=== PATIENT | female | born 1945 | race Two or more races ===

== ENCOUNTER → 2023-08-04 | Outpatient (CLI) | payer OTHER ==
[2023-08-04 13:20] LABS: Basophils # (auto) 0.1 10 ^3/uL (0-0.2); Basophils % (auto) 1.1 % (0.0-2.0); Eosinophils # (auto) 0.1 10 ^3/uL (0-0.8); Eosinophils % (auto) 2.7 % (0.0-7.0); Hemoglobin 13.2 g/dL (12.2-16.2); Lymphocytes # (auto) 2.6 10 ^3/uL (0.4-5.4); Lymphocytes % (auto) 57.4 % (10.0-50.0); Mean Corpuscular Hemoglobin 28.7 pg (28.0-32.0); Mean Corpuscular Volume 87.1 fL (80.0-100.0); Monocytes # (auto) 0.4 10 ^3/uL (0-1.3); Monocytes % (auto) 7.7 % (0.0-12.0); Neutrophils # (auto) 1.4 10 ^3/uL (1.6-8.6); Neutrophils % (auto) 31.1 % (37.0-80.0); Nucleated Red Blood Cells % 0.1 %; Red Cell Distribution Width 14.2 % (11.8-14.3); White Blood Cell 4.6 10^3/uL (4.4-10.8)
[2023-08-04 13:34] LABS: Urine Bacteria FEW /hpf (None Seen); Urine Blood Negative /uL (Negative); Urine Clarity Clear (Clear); Urine Color Yellow (Yellow); Urine Hyaline Cast FEW /lpf (0 - 2); Urine Protein, UAD TRACE (Negative); Urine Specific Gravity 1.026 (1.001-1.035); Urine Urobilinogen Normal (Negative); Urine WBC 9 /hpf (0 - 5)
[2023-08-04 13:41] LABS: Alanine Aminotransferase 18 U/L (7-40); Albumin 4.4 g/dL (3.2-4.8); Alkaline Phosphatase 102 U/L (46-116); Anion Gap 7 (5-15); Aspartate Aminotransferase 17 U/L (13-40); BUN/Creatinine Ratio 17.6 (10.0-20.0); Blood Urea Nitrogen 13 mg/dL (9-23); Calcium 9.8 mg/dL (8.5-10.1); Carbon Dioxide 29 mmol/L (20-30); Chloride 107 mmol/L (98-107); Glucose 139 mg/dL (74-106); LDL Cholesterol 137 mg/dL (< 100); Potassium 4.4 mmol/L (3.5-5.1); Sodium 143 mmol/L (136-145); Triglycerides 210 mg/dL (< 150)
[2023-08-04 13:42] LABS: Bilirubin, Total 0.5 mg/dL (0.2-1.0); Cholesterol 239 mg/dL (< 200); HDL Cholesterol 46 mg/dL (40-59); Total Protein 6.7 g/dL (5.7-8.2)
[2023-08-04 13:43] LABS: Folate (Folic Acid) 19.3 ng/mL (>5.38)
[2023-08-04 14:08] LABS: Uric Acid 6.7 mg/dL (3.1-7.8)
== END | disposition home or self-care (01) ==
LOC: LAB 12:47
PROVIDERS: ATTEND Internal Medicine
DX: E61.2 Magnesium deficiency (principal); R78.89 Finding of other specified substances, not normally found in blood; E78.41 Elevated Lipoprotein(a); R94.6 Abnormal results of thyroid function studies; E79.0 Hyperuricemia without signs of inflammatory arthritis and tophaceous disease; E85.9 Amyloidosis, unspecified; R82.991 Hypocitraturia; R82.90 Unspecified abnormal findings in urine; R82.79 Other abnormal findings on microbiological examination of urine; D51.9 Vitamin B12 deficiency anemia, unspecified
CPT/HCPCS: 36415; 80053; 80061; 81001; 82306; 82607; 82746; 83036; 84443; 84550; 85025; 87086

== ENCOUNTER 2023-11-03 21:54 | Emergency (ER) | payer OTHER ==
[~2023-11-03] VITALS: Ht 142.2 cm; Wt 77.5 kg
[2023-11-03 23:15] VITALS: PULSE 80; RESP 16; O2SAT 95
[2023-11-03] MEDS: SODIUM CHLORIDE 0.9% 1,000 ML IV ONE (23:18)
[2023-11-03 23:22] LABS: Basophils # (auto) 0.1 10 ^3/uL (0-0.2); Basophils % (auto) 0.7 % (0.0-2.0); Eosinophils # (auto) 0 10 ^3/uL (0-0.8); Eosinophils % (auto) 0.5 % (0.0-7.0); Hematocrit 44.3 % (36.0-46.0); Hemoglobin 14.5 g/dL (12.2-16.2); Lymphocytes # (auto) 1.6 10 ^3/uL (0.4-5.4); Lymphocytes % (auto) 18.7 % (10.0-50.0); Mean Corpuscular Hemoglobin 28.5 pg (28.0-32.0); Mean Corpuscular Hgb Conc. 32.8 g/dL (32.0-36.0); Mean Corpuscular Volume 86.7 fL (80.0-100.0); Monocytes # (auto) 0.7 10 ^3/uL (0-1.3); Monocytes % (auto) 8.1 % (0.0-12.0); Neutrophils # (auto) 6.1 10 ^3/uL (1.6-8.6); Nucleated Red Blood Cells % 0.1 %; Red Blood Cells 5.11 10^6/uL (4.0-5.20); Red Cell Distribution Width 13.4 % (11.8-14.3); White Blood Cell 8.5 10^3/uL (4.4-10.8)
[2023-11-03 23:34] LABS: Alanine Aminotransferase 18 U/L (7-40); Albumin 4.5 g/dL (3.2-4.8); Alkaline Phosphatase 96 U/L (46-116); Anion Gap 6 (5-15); Aspartate Aminotransferase 17 U/L (13-40); BUN/Creatinine Ratio 15.4 (10.0-20.0); Blood Urea Nitrogen 10 mg/dL (9-23); Calcium 9.9 mg/dL (8.7-10.4); Carbon Dioxide 29 mmol/L (20-30); Chloride 105 mmol/L (98-107); Glucose 161 mg/dL (74-106); Potassium 4.4 mmol/L (3.5-5.1); Sodium 140 mmol/L (136-145)
[2023-11-03 23:35] LABS: Bilirubin, Total 0.8 mg/dL (0.2-1.0)
[2023-11-03 23:36] LABS: INR 1.04 (0.9-1.15); Partial Thromboplastin Time 26.4 SEC (24.5-34.5); Prothrombin Time 10.9 sec (9.3-11.8)
[2023-11-03 23:48] LABS: Total Protein 6.9 g/dL (5.7-8.2)
[2023-11-04] MEDS ORDERED: DexAMETHasone SOD PHOS 10MG/1ML VIAL INJ IM ONE (01:15)
[2023-11-04] MEDS: DexAMETHasone SOD PHOS 10MG/1ML VIAL INJ IV ONE (01:34)
[2023-11-04] MEDS: MANNITOL 20 % (20GM/100ML) 500 ML IV ONE (01:53)
[2023-11-04] MEDS: levETIRAcetam 1000 mg/100ml 100 ML IV ONE (01:53)
[2023-11-04] MEDS: MANNITOL 20% SOLN 100 gm/500ml 300 ML IV ONE (02:39)
[2023-11-04] MEDS: D5W/SOD CHL 0.45% 1,000 ML IV ONE (03:35)
[2023-11-04 06:11] VITALS: BP 100/48; PULSE 78; RESP 13; TEMP 98.2; O2SAT 95
== END 2023-11-04 06:32 | disposition short-term general hospital (02) ==
LOC: EDBD 21:54 → ER 21:54
DX: D49.6 Neoplasm of unspecified behavior of brain (principal); G93.5 Compression of brain; I10 Essential (primary) hypertension; E11.9 Type 2 diabetes mellitus without complications; I48.91 Unspecified atrial fibrillation
CPT/HCPCS: 36415; 70450; 71045; 80053; 82962; 84484; 85025; 85610; 85730; 93005; 96361; 96365; 96375; 99285; J1100; J1953; J7030

== ENCOUNTER 2023-12-01 09:35 | Inpatient (IN) | payer OTHER ==
[~2023-12-01] VITALS: Ht 165.1 cm; Wt 167.7 kg
[2023-12-01 23:18] VITALS: BP_SYST 108; BP_SYST 136; BP_DIAS 54; PULSE 65; PULSE 72; PULSE 83; RESP 16; RESP 19; RESP 20; TEMP 98.5; TEMP 98.7; O2SAT 94; O2SAT 96
[2023-12-02] VITALS (7 sets, daily range): BP systolic 119–157; BP diastolic 53–75; PULSE 66–86; RESP 16–20; TEMP 97.8–98.9; O2SAT 94–100
[2023-12-02] MEDS ORDERED: ONDANSETRON HCL 4 MG/2 ML VIAL IV PRN (05:00)
[2023-12-02] MEDS ORDERED: DOCUSATE SOD 100 MG CAP PO PRN (05:00)
[2023-12-02] MEDS ORDERED: MORPHINE SULFATE INJ 2 MG/ml SYRG IV PRN (05:00)
[2023-12-02] MEDS ORDERED: NITROGLYCERIN 0.4 MG SL TAB SL PRN (05:00)
[2023-12-02] MEDS: SODIUM CHLORIDE 0.9% 1,000 ML IV SCH (05:00)
[2023-12-02] MEDS ORDERED: ACETAMINOPHEN 325 MG TAB PO PRN (05:00)
[2023-12-02] MEDS ORDERED: DEXTROSE (50%) 50ML SYRG IV PRN (05:00)
[2023-12-02] MEDS ORDERED: HYDROcodone-ACET 5/325MG TAB PO PRN (05:00)
[2023-12-02] MEDS ORDERED: BISACODYL 10 MG RECT SUPP PR PRN (05:15)
[2023-12-02] MEDS ORDERED: INSULIN NPH Isophane (HUMAN) 1unit/0.01ml Susp(100units/ml) SC SCH (07:00)
[2023-12-02 07:12] LABS: Hematocrit 30.2 % (36.0-46.0); Hemoglobin 9.7 g/dL (12.2-16.2); Mean Corpuscular Hemoglobin 29.1 pg (28.0-32.0); Mean Corpuscular Hgb Conc. 32.2 g/dL (32.0-36.0); Mean Corpuscular Volume 90.2 fL (80.0-100.0); Red Blood Cells 3.35 10^6/uL (4.0-5.20); Red Cell Distribution Width 15.3 % (11.8-14.3); White Blood Cell 6.4 10^3/uL (4.4-10.8)
[2023-12-02 07:16] LABS: Basophils % (manual) 0 (0.0-2.0); Blast Cells 0; Metamyelocytes % 0; Myelocytes % 0; Promyelocytes % 0; Reactive Lymphocytes 0
[2023-12-02 07:19] LABS: Alanine Aminotransferase 32 U/L (7-40); Albumin 3.8 g/dL (3.2-4.8); Alkaline Phosphatase 93 U/L (46-116); Anion Gap 7 (5-15); Aspartate Aminotransferase 33 U/L (13-40); BUN/Creatinine Ratio 21.5 (10.0-20.0); Bilirubin, Total 0.4 mg/dL (0.2-1.0); Blood Urea Nitrogen 14 mg/dL (9-23); Calcium 9.6 mg/dL (8.5-10.1); Carbon Dioxide 31 mmol/L (20-30); Chloride 105 mmol/L (98-107); Glucose 81 mg/dL (74-106); Potassium 4.1 mmol/L (3.5-5.1); Sodium 143 mmol/L (136-145); Total Protein 6.3 g/dL (5.7-8.2)
[2023-12-02 07:37] LABS: Band Neutrophils % (manual) 2; Eosinophils % (manual) 2 (0-7); Lymphocytes % (manual) 45 (10.0-50.0); Monocytes % (manual) 8 (0-12); Platelet Estimate Adequate
[2023-12-02] MEDS ORDERED: ENOXAPARIN SOD 40 MG/0.4 ML SYRINGE SC SCH (10:00)
[2023-12-02] MEDS ORDERED: levETIRAcetam 500 mg/100ml 100 ML IV SCH (10:00)
[2023-12-02] MEDS: AMANTADINE HCL 100 MG CAP PO SCH (10:00)
[2023-12-02] MEDS: levETIRAcetam 1000 mg/100ml 100 ML IV SCH (10:48)
[2023-12-02] MEDS: HEPARIN SODIUM (PORCINE) 5000 UNITS/ML 1ML VIAL SC SCH (10:58)
[2023-12-02] MEDS: ACCU-CHEK COMFORT CURVE STRIP VI SCH (11:21)
[2023-12-02] MEDS: InsuLIN REG 1unit/0.01ml Soln (100units/ml) SC SCH ×2 (11:22→21:39)
[2023-12-02] MEDS: hydrALAZINE HCL 20 MG/ML VL IV SCH (12:00)
[2023-12-03] VITALS (7 sets, daily range): BP systolic 110–148; BP diastolic 49–81; PULSE 71–95; RESP 16–18; TEMP 97.4–99.2; O2SAT 95–98
[2023-12-03 07:16] LABS: Hematocrit 34.6 % (36.0-46.0); Hemoglobin 10.9 g/dL (12.2-16.2); Mean Corpuscular Hemoglobin 29.2 pg (28.0-32.0); Mean Corpuscular Hgb Conc. 31.5 g/dL (32.0-36.0); Mean Corpuscular Volume 92.7 fL (80.0-100.0); Red Blood Cells 3.73 10^6/uL (4.0-5.20); Red Cell Distribution Width 16.1 % (11.8-14.3); White Blood Cell 6.4 10^3/uL (4.4-10.8)
[2023-12-03 07:37] LABS: Basophils % (manual) 0 (0.0-2.0); Blast Cells 0; Myelocytes % 0; Reactive Lymphocytes 0
[2023-12-03 08:27] LABS: Band Neutrophils % (manual) 1; Eosinophils % (manual) 2 (0-7); Lymphocytes % (manual) 29 (10.0-50.0); Metamyelocytes % 1; Monocytes % (manual) 15 (0-12); Platelet Estimate Adequate; Promyelocytes % 3
[2023-12-03 09:27] LABS: Alanine Aminotransferase 34 U/L (7-40); Alkaline Phosphatase 105 U/L (46-116); Anion Gap 9 (5-15); Aspartate Aminotransferase 40 U/L (13-40); BUN/Creatinine Ratio 13.4 (10.0-20.0); Bilirubin, Total 0.6 mg/dL (0.2-1.0); Blood Urea Nitrogen 9 mg/dL (9-23); Calcium 9.8 mg/dL (8.7-10.4); Carbon Dioxide 25 mmol/L (20-30); Chloride 107 mmol/L (98-107); Glucose 103 mg/dL (74-106); Potassium 4.3 mmol/L (3.5-5.1); Sodium 141 mmol/L (136-145); Total Protein 6.8 g/dL (5.7-8.2)
[2023-12-03] MEDS ORDERED: Glucerna 1.2 Cal 1Liter BOTTLE GT SCH (13:15)
[2023-12-04] VITALS (7 sets, daily range): BP systolic 92–124; BP diastolic 35–67; PULSE 84–101; RESP 16–20; TEMP 97.6–98.7; O2SAT 90–95
[2023-12-04 07:13] LABS: Hematocrit 35.3 % (36.0-46.0); Hemoglobin 11.2 g/dL (12.2-16.2); Mean Corpuscular Hemoglobin 29.1 pg (28.0-32.0); Mean Corpuscular Hgb Conc. 31.7 g/dL (32.0-36.0); Mean Corpuscular Volume 91.7 fL (80.0-100.0); Red Blood Cells 3.84 10^6/uL (4.0-5.20); Red Cell Distribution Width 16.2 % (11.8-14.3); White Blood Cell 7.4 10^3/uL (4.4-10.8)
[2023-12-04 07:32] LABS: Basophils % (manual) 0 (0.0-2.0); Blast Cells 0; Myelocytes % 0; Reactive Lymphocytes 0
[2023-12-04 07:33] LABS: Alanine Aminotransferase 38 U/L (7-40); Albumin 4.1 g/dL (3.2-4.8); Anion Gap 12 (5-15); Aspartate Aminotransferase 41 U/L (13-40); BUN/Creatinine Ratio 15.6 (10.0-20.0); Bilirubin, Total 0.7 mg/dL (0.2-1.0); Blood Urea Nitrogen 10 mg/dL (9-23); Calcium 9.9 mg/dL (8.7-10.4); Carbon Dioxide 22 mmol/L (20-30); Chloride 107 mmol/L (98-107); Glucose 140 mg/dL (74-106); Potassium 3.7 mmol/L (3.5-5.1); Sodium 141 mmol/L (136-145); Total Protein 6.8 g/dL (5.7-8.2)
[2023-12-04 07:38] LABS: Alkaline Phosphatase 112 U/L (46-116)
[2023-12-04] MEDS ORDERED: hydrALAZINE HCL 20 MG/ML VL IV PRN (09:15)
[2023-12-04] MEDS ORDERED: DEXTROSE (50%) 50ML SYRG IV PRN (09:15)
[2023-12-04 10:21] LABS: Band Neutrophils % (manual) 4; Eosinophils % (manual) 1 (0-7); Lymphocytes % (manual) 32 (10.0-50.0); Metamyelocytes % 2; Monocytes % (manual) 22 (0-12); Promyelocytes % 1
[2023-12-04 10:22] LABS: Platelet Estimate Adequate
[2023-12-04] MEDS: SODIUM CHLORIDE 0.9% 250 ML IV ONE (10:56)
[2023-12-04] MEDS: InsuLIN REG 1unit/0.01ml Soln (100units/ml) SC SCH (12:00)
[2023-12-04] MEDS ORDERED: ACCU-CHEK COMFORT CURVE STRIP VI SCH (12:00)
[2023-12-04] MEDS: ENSURE CLEAR Mixed Berry 8oz Carton PO SCH (17:59)
[2023-12-04] MEDS ORDERED: ENSURE CLEAR Mixed Berry 8oz Carton PO SCH (18:00)
[2023-12-04 18:04] LABS: Urine Bacteria NONE SEEN /hpf (None Seen); Urine Blood Negative /uL (Negative); Urine Clarity Clear (Clear); Urine Color Yellow (Yellow); Urine Protein, UAD TRACE (Negative); Urine Specific Gravity 1.022 (1.001-1.035); Urine WBC 1 /hpf (0 - 5); Urine pH 5.5 (5.0-8.0)
[2023-12-04] MEDS ORDERED: LORazepam 2MG/ML-1ML VIAL IV PRN (22:30)
[2023-12-04] MEDS: FREE WATER GT SCH (23:19)
[2023-12-05] VITALS (7 sets, daily range): BP systolic 93–117; BP diastolic 45–117; PULSE 67–92; RESP 16–22; TEMP 97.7–98.5; O2SAT 20–100
[2023-12-05] MEDS: ACCU-CHEK COMFORT CURVE STRIP VI SCH ×2 (00:55→18:46)
[2023-12-05 06:19] LABS: Chloride 109 mmol/L (98-107); Potassium 3.3 mmol/L (3.5-5.1); Sodium 141 mmol/L (136-145)
[2023-12-05 06:20] LABS: Anion Gap 6 (5-15); Carbon Dioxide 26 mmol/L (20-30)
[2023-12-05 06:21] LABS: Calcium 9.1 mg/dL (8.7-10.4)
[2023-12-05 06:25] LABS: Glucose 125 mg/dL (74-106); Hematocrit 31.3 % (36.0-46.0); Hemoglobin 10.1 g/dL (12.2-16.2); Mean Corpuscular Hemoglobin 29.9 pg (28.0-32.0); Mean Corpuscular Hgb Conc. 32.3 g/dL (32.0-36.0); Mean Corpuscular Volume 92.7 fL (80.0-100.0); Red Blood Cells 3.38 10^6/uL (4.0-5.20); Red Cell Distribution Width 15.8 % (11.8-14.3); White Blood Cell 7.1 10^3/uL (4.4-10.8)
[2023-12-05 06:26] LABS: BUN/Creatinine Ratio 16.4 (10.0-20.0); Blood Urea Nitrogen 9 mg/dL (9-23); Magnesium 1.8 mg/dL (1.6-2.6)
[2023-12-05 06:35] LABS: Band Neutrophils % (manual) 0; Basophils % (manual) 0 (0.0-2.0); Blast Cells 0; Metamyelocytes % 0; Reactive Lymphocytes 0
[2023-12-05 09:08] LABS: Platelet Estimate Adequate
[2023-12-05 09:47] LABS: Eosinophils % (manual) 6 (0-7); Lymphocytes % (manual) 33 (10.0-50.0); Monocytes % (manual) 12 (0-12); Myelocytes % 1; Promyelocytes % 1
[2023-12-05] MEDS ORDERED: Vital AF 1.2 Cal 1 liter bottle GT SCH (14:00)
[2023-12-05] MEDS: POTASSIUM EFFERVESENT TAB 25 MEQ GT ONE (14:19)
[2023-12-05] MEDS ORDERED: DEXTROSE (50%) 50ML SYRG IV PRN (14:45)
[2023-12-05] MEDS ORDERED: ACCU-CHEK COMFORT CURVE STRIP VI SCH (18:00)
[2023-12-05] MEDS: Pivot 1.5 Cal One Liter GT SCH (18:05)
[2023-12-05] MEDS: InsuLIN REG 1unit/0.01ml Soln (100units/ml) SC SCH (18:47)
[2023-12-06] VITALS (7 sets, daily range): BP systolic 106–123; BP diastolic 56–64; PULSE 72–103; RESP 19–22; TEMP 97.7–98.7; O2SAT 94–98
[2023-12-06 07:02] LABS: Anion Gap 7 (5-15); Carbon Dioxide 26 mmol/L (20-30); Chloride 109 mmol/L (98-107); Potassium 3.5 mmol/L (3.5-5.1); Sodium 142 mmol/L (136-145)
[2023-12-06 07:03] LABS: Calcium 9.2 mg/dL (8.5-10.1)
[2023-12-06 07:08] LABS: Blood Urea Nitrogen 7 mg/dL (9-23); Glucose 168 mg/dL (74-106); Triglycerides 345 mg/dL (< 150)
[2023-12-06 07:09] LABS: LDL Cholesterol 70 mg/dL (< 100)
[2023-12-06 07:10] LABS: Cholesterol 157 mg/dL (< 200); HDL Cholesterol 33 mg/dL (40-59)
[2023-12-06] MEDS ORDERED: Vital High Protein 1liter Bottle GT SCH ×2 (12:00→13:00)
[2023-12-07] VITALS (7 sets, daily range): BP systolic 95–117; BP diastolic 50–62; PULSE 65–96; RESP 16–19; TEMP 97.5–98.8; O2SAT 92–98
[2023-12-08] MEDS: D5W/SOD CHL 0.45% 1,000 ML IV SCH (03:54)
[2023-12-08 05:00] VITALS: BP_SYST 140; BP_SYST 145; BP_SYST 168; BP_DIAS 47; BP_DIAS 51; BP_DIAS 64; PULSE 74; PULSE 76; PULSE 89; RESP 16; RESP 18; TEMP 97.7; TEMP 98.2; TEMP 98.4; O2SAT 96; O2SAT 97; O2SAT 99
[2023-12-08 08:00] VITALS: PULSE 75; PULSE 88; RESP 12; O2SAT 98
[2023-12-08 09:00] VITALS: BP 139/49; PULSE 88; RESP 12; TEMP 98.6; O2SAT 95
[2023-12-08] MEDS: GASTROGRAFIN 30 ML SOL ONE (10:57)
[2023-12-08 13:00] VITALS: BP 126/78; PULSE 88; RESP 12; TEMP 97.7; O2SAT 98
[2023-12-08 20:00] VITALS: PULSE 79; RESP 16; O2SAT 97
[2023-12-08 22:00] VITALS: BP 125/56; PULSE 94; RESP 16; TEMP 97.8; O2SAT 97
[2023-12-09 05:00] VITALS: BP 143/53; PULSE 89; RESP 16; TEMP 98.4; O2SAT 95
[2023-12-09 07:07] LABS: Chloride 108 mmol/L (98-107); Potassium 3.9 mmol/L (3.5-5.1); Sodium 138 mmol/L (136-145)
[2023-12-09 07:08] LABS: Anion Gap 6 (5-15); Carbon Dioxide 24 mmol/L (20-30)
[2023-12-09 07:13] LABS: BUN/Creatinine Ratio 16.3 (10.0-20.0); Blood Urea Nitrogen 7 mg/dL (9-23); Glucose 204 mg/dL (74-106)
[2023-12-09 07:15] LABS: Basophils # (auto) 0.1 10 ^3/uL (0-0.2); Basophils % (auto) 0.9 % (0.0-2.0); Eosinophils # (auto) 0.2 10 ^3/uL (0-0.8); Hematocrit 31.8 % (36.0-46.0); Hemoglobin 9.9 g/dL (12.2-16.2); Lymphocytes # (auto) 2.7 10 ^3/uL (0.4-5.4); Mean Corpuscular Volume 93.3 fL (80.0-100.0); Monocytes # (auto) 0.8 10 ^3/uL (0-1.3); Monocytes % (auto) 9.2 % (0.0-12.0); Neutrophils # (auto) 5.1 10 ^3/uL (1.6-8.6); Neutrophils % (auto) 57.9 % (37.0-80.0); Nucleated Red Blood Cells % 0.4 %; Red Cell Distribution Width 16.6 % (11.8-14.3); White Blood Cell 8.9 10^3/uL (4.4-10.8)
[2023-12-09 08:10] VITALS: PULSE 85; O2SAT 98
[2023-12-09 09:08] VITALS: BP 123/58; PULSE 72; RESP 16; TEMP 97.7; O2SAT 98
[2023-12-09] MEDS ORDERED: MIDAZOLAM HCL 5 MG/ML-1ML VIAL ONE (12:45)
[2023-12-09] MEDS ORDERED: diphenhdrAMINE HCL 50 MG/1 ML VL ONE (12:45)
[2023-12-09] MEDS ORDERED: LIDOCAINE VISCOUS 2% 15ML UD ONE (12:45)
[2023-12-09] MEDS ORDERED: SODIUM CHLORIDE LOCK 10 ML ONE (12:45)
[2023-12-09] MEDS ORDERED: fentaNYL CITRATE 100 MCG/2 ML VL ONE (12:46)
[2023-12-09 12:59] VITALS: BP 120/99; PULSE 87; RESP 16; TEMP 98; O2SAT 97
[2023-12-09 17:13] VITALS: BP 123/91; PULSE 81; RESP 17; TEMP 98.2; O2SAT 98
[2023-12-09 20:00] VITALS: PULSE 78; RESP 18; O2SAT 96
[2023-12-10] VITALS (8 sets, daily range): BP systolic 104–126; BP diastolic 48–67; PULSE 65–97; RESP 16–18; TEMP 96.9–99.4; O2SAT 82–100
[2023-12-10] MEDS: AMANTADINE HCL 100 MG CAP GT SCH (22:43)
[2023-12-11] MEDS: Vital AF 1.2 Cal 1 liter bottle GT SCH (01:58)
[2023-12-11 05:00] VITALS: BP 136/67; PULSE 73; RESP 18; TEMP 97.2; O2SAT 100
[2023-12-11 08:00] VITALS: BP 136/67; PULSE 72; PULSE 73; RESP 18; TEMP 97.2; O2SAT 100
[2023-12-11 11:37] VITALS: BP 143/58; PULSE 74; RESP 20; TEMP 98.6; O2SAT 95
[2023-12-11 20:00] VITALS: PULSE 72
[2023-12-11 22:00] VITALS: BP 131/56; PULSE 70; RESP 18; TEMP 97.6; O2SAT 97
[2023-12-12] VITALS (7 sets, daily range): BP systolic 112–159; BP diastolic 63–95; PULSE 68–79; RESP 16–22; TEMP 97.6–98.1; O2SAT 91–95
[2023-12-12 10:06] LABS: Chloride 105 mmol/L (98-107); Potassium 3.6 mmol/L (3.5-5.1); Sodium 140 mmol/L (136-145)
[2023-12-12 10:07] LABS: Anion Gap 6 (5-15); Carbon Dioxide 29 mmol/L (20-30)
[2023-12-12 10:08] LABS: Calcium 9.1 mg/dL (8.5-10.1)
[2023-12-12 10:12] LABS: BUN/Creatinine Ratio 20.8 (10.0-20.0); Blood Urea Nitrogen 10 mg/dL (9-23); Glucose 160 mg/dL (74-106)
[2023-12-12 10:25] LABS: Basophils # (auto) 0.1 10 ^3/uL (0-0.2); Basophils % (auto) 1.2 % (0.0-2.0); Eosinophils # (auto) 0.2 10 ^3/uL (0-0.8); Eosinophils % (auto) 3.3 % (0.0-7.0); Hematocrit 30.8 % (36.0-46.0); Hemoglobin 9.9 g/dL (12.2-16.2); Lymphocytes # (auto) 2.4 10 ^3/uL (0.4-5.4); Lymphocytes % (auto) 36.7 % (10.0-50.0); Mean Corpuscular Hemoglobin 28.9 pg (28.0-32.0); Mean Corpuscular Hgb Conc. 32.2 g/dL (32.0-36.0); Mean Corpuscular Volume 89.6 fL (80.0-100.0); Monocytes # (auto) 0.7 10 ^3/uL (0-1.3); Monocytes % (auto) 10.3 % (0.0-12.0); Neutrophils # (auto) 3.2 10 ^3/uL (1.6-8.6); Neutrophils % (auto) 48.5 % (37.0-80.0); Nucleated Red Blood Cells % 0.1 %; Red Blood Cells 3.44 10^6/uL (4.0-5.20); Red Cell Distribution Width 15.5 % (11.8-14.3); White Blood Cell 6.5 10^3/uL (4.4-10.8)
[2023-12-12 11:33] LABS: INR 1.04 (0.9-1.15); Partial Thromboplastin Time 25.6 SEC (24.5-34.5); Prothrombin Time 10.9 sec (9.3-11.8)
[2023-12-13] VITALS (7 sets, daily range): BP systolic 110–135; BP diastolic 57–64; PULSE 67–92; RESP 16–18; TEMP 97.8–98.1; O2SAT 94–97
[2023-12-13] MEDS: ACETAMINOPHEN 650 mg PER 20.3 mL UD GT PRN (02:09)
[2023-12-13] MEDS: GASTROGRAFIN 30 ML SOL ONE (12:50)
[2023-12-14] VITALS (7 sets, daily range): BP systolic 113–148; BP diastolic 54–62; PULSE 65–91; RESP 16–18; TEMP 97.3–98.3; O2SAT 92–98
[2023-12-14] MEDS: NYSTATIN (MOUTH-THROAT) 500,000 UNITS/5 ML SUSP MT SCH (12:44)
[2023-12-15] VITALS (8 sets, daily range): BP systolic 110–138; BP diastolic 46–66; PULSE 64–83; RESP 16–18; TEMP 97.3–98.1; O2SAT 92–99
[2023-12-15 05:49] LABS: Basophils # (auto) 0.1 10 ^3/uL (0-0.2); Eosinophils # (auto) 0.1 10 ^3/uL (0-0.8); Eosinophils % (auto) 2.1 % (0.0-7.0); Hematocrit 30.2 % (36.0-46.0); Hemoglobin 9.6 g/dL (12.2-16.2); Lymphocytes # (auto) 2.5 10 ^3/uL (0.4-5.4); Mean Corpuscular Hemoglobin 28.7 pg (28.0-32.0); Mean Corpuscular Hgb Conc. 31.9 g/dL (32.0-36.0); Monocytes # (auto) 0.6 10 ^3/uL (0-1.3); Neutrophils # (auto) 3.7 10 ^3/uL (1.6-8.6); Neutrophils % (auto) 52.9 % (37.0-80.0); Nucleated Red Blood Cells % 0.2 %; Red Blood Cells 3.36 10^6/uL (4.0-5.20); Red Cell Distribution Width 15.9 % (11.8-14.3)
[2023-12-15 06:09] LABS: Alanine Aminotransferase 28 U/L (7-40); Albumin 3.5 g/dL (3.2-4.8); Alkaline Phosphatase 105 U/L (46-116); Anion Gap 7 (5-15); Aspartate Aminotransferase 25 U/L (13-40); Bilirubin, Total 0.3 mg/dL (0.2-1.0); Blood Urea Nitrogen 9 mg/dL (9-23); Calcium 9.1 mg/dL (8.5-10.1); Carbon Dioxide 27 mmol/L (20-30); Chloride 107 mmol/L (98-107); Glucose 133 mg/dL (74-106); Potassium 3.9 mmol/L (3.5-5.1); Sodium 141 mmol/L (136-145); Total Protein 5.6 g/dL (5.7-8.2)
[2023-12-15] MEDS: levETIRAcetam 500 MG/5ML ORAL SOLN UD GT SCH (22:05)
[2023-12-16] VITALS (8 sets, daily range): BP systolic 100–135; BP diastolic 43–67; PULSE 63–72; RESP 16–19; TEMP 96.3–98.1; O2SAT 91–97
[2023-12-17] VITALS (9 sets, daily range): BP systolic 95–146; BP diastolic 45–88; PULSE 64–80; RESP 16–20; TEMP 97.5–98.8; O2SAT 91–96
[2023-12-17] MEDS: MAGNESIUM SULFATE 1GM/100ML 100 ML IV SCH (17:52)
[2023-12-17 20:34] LABS: Anion Gap 7 (5-15); Carbon Dioxide 27 mmol/L (20-30); Chloride 104 mmol/L (98-107); Potassium 3.9 mmol/L (3.5-5.1); Sodium 138 mmol/L (136-145)
[2023-12-17 20:35] LABS: Calcium 9.5 mg/dL (8.7-10.4)
[2023-12-17 20:40] LABS: BUN/Creatinine Ratio 23.7 (10.0-20.0); Blood Urea Nitrogen 14 mg/dL (9-23); Glucose 224 mg/dL (74-106)
[2023-12-17 20:41] LABS: Magnesium 2.2 mg/dL (1.6-2.6)
[2023-12-17] MEDS: AMIODARONE HCL 200 MG TAB PO SCH (22:20)
[2023-12-18] VITALS (9 sets, daily range): BP systolic 100–129; BP diastolic 49–91; PULSE 71–83; RESP 17–18; TEMP 98–98.3; O2SAT 94–95
[2023-12-19 05:00] VITALS: BP 130/60; PULSE 71; RESP 18; TEMP 98.2; O2SAT 95
[2023-12-19 08:00] VITALS: BP 116/65; PULSE 71; PULSE 74; PULSE 76; RESP 17; TEMP 98.3; O2SAT 95
[2023-12-19 20:00] VITALS: PULSE 74
[2023-12-19 21:13] VITALS: BP 124/72; PULSE 74; RESP 17; TEMP 98.1; O2SAT 95
[2023-12-20] VITALS (9 sets, daily range): BP systolic 102–137; BP diastolic 39–97; PULSE 62–80; RESP 17; TEMP 97.6–98.8; O2SAT 92–94
[2023-12-20] MEDS ORDERED: Vital AF 1.2 Cal 1 liter bottle GT SCH (20:00)
[2023-12-21 01:00] VITALS: BP 126/51; PULSE 64; RESP 18; TEMP 98; O2SAT 93
[2023-12-21 05:00] VITALS: BP 120/58; PULSE 69; RESP 15; TEMP 97.6; O2SAT 97
[2023-12-21 09:00] VITALS: BP 116/67; PULSE 71; RESP 15; TEMP 97.9; O2SAT 97
[2023-12-21 13:00] VITALS: BP 109/59; PULSE 69; RESP 15; TEMP 97.4; O2SAT 97
[2023-12-21 17:00] VITALS: BP 138/52; PULSE 67; RESP 15; TEMP 97.6; O2SAT 93
[2023-12-21 20:00] VITALS: PULSE 60; PULSE 65
[2023-12-22 05:00] VITALS: BP 105/57; PULSE 64; RESP 16; TEMP 98.3; O2SAT 96
[2023-12-22 08:00] VITALS: PULSE 65
[2023-12-22 08:43] VITALS: BP 141/71; PULSE 72; RESP 18; TEMP 98.1; O2SAT 97
[2023-12-22 13:00] VITALS: BP 109/58; PULSE 72; RESP 18; TEMP 97.8; O2SAT 98
[2023-12-22 17:00] VITALS: BP 128/70; PULSE 73; RESP 16; TEMP 97.9; O2SAT 96
== END 2023-12-22 17:01 | DRG 393 ==
LOC: WEST WING 22:24 → TELE-WESTW 12-03 03:49
PROVIDERS: ADMIT Internal Medicine; ATTEND Internal Medicine
PROC: 0DP6XUZ Removal of Feeding Device from Stomach, External Approach (ICD-10-PCS; principal; 2023-12-12)
PROC: 0DH63UZ Insertion of Feeding Device into Stomach, Percutaneous Approach (ICD-10-PCS; 2023-12-12)
DX: K94.23 Gastrostomy malfunction (principal); G93.41 Metabolic encephalopathy; G40.209 Localization-related (focal) (partial) symptomatic epilepsy and epileptic syndromes with complex partial seizures, not intractable, without status epilepticus; B37.0 Candidal stomatitis; D32.0 Benign neoplasm of cerebral meninges; R26.81 Unsteadiness on feet; I10 Essential (primary) hypertension; E78.1 Pure hyperglyceridemia; I48.0 Paroxysmal atrial fibrillation; E11.9 Type 2 diabetes mellitus without complications; E78.5 Hyperlipidemia, unspecified; I25.10 Atherosclerotic heart disease of native coronary artery without angina pectoris; D64.9 Anemia, unspecified; Y83.8 Other surgical procedures as the cause of abnormal reaction of the patient, or of later complication, without mention of misadventure at the time of the procedure; Y82.8 Other medical devices associated with adverse incidents; Z79.84 Long term (current) use of oral hypoglycemic drugs; Z79.899 Other long term (current) drug therapy; Z91.018 Allergy to other foods
CPT/HCPCS: 36415; 70450; 71045; 74021; 80048; 80053; 80061; 81001; 82533; 82962; 83036; 83735; 83880; 84439; 84443; 85007; 85025; 85027; 85610; 85730; 87081; 92610; 93005; 93306; 95819; 97110; 97116; 97163; 97530; G0378; J1815; J2250; J7042